=== PATIENT | male | born 1990 | race Caucasian/White ===

== ENCOUNTER → 2021-02-27 11:23 | Outpatient (CLI) | payer OTHER, SELFPAY ==
[2021-02-27] MEDS: COVID-19 VACC #1, MRNA(MOD) 100 MCG/0.5 ML VIAL IM (11:36)
== END ==
PROVIDERS: Visit Provider Internal Medicine
DX: Z23 Encounter for immunization (principal)
CPT/HCPCS: 0011A; 91301

== ENCOUNTER → 2021-03-28 11:14 | Outpatient (CLI) | payer OTHER, SELFPAY ==
[2021-03-28] MEDS: COVID-19 VACC #2, MRNA(MOD) 100 MCG/0.5 ML VIAL IM (11:21)
== END ==
PROVIDERS: Visit Provider Internal Medicine
DX: Z23 Encounter for immunization (principal)
CPT/HCPCS: 0012A; 91301

== ENCOUNTER 2023-05-17 22:36 | Emergency (ER) | payer SELFPAY ==
[2023-05-17] VITALS (9 sets, daily range): BP systolic 166–198; BP diastolic 87–134; PULSE 50–74; RESP 18–36; TEMP 36.3; O2SAT 96–100; BMI 35.9
--- NOTE | 2023-05-17 22:47 | ED_ITS ---
HPI - Back Pain/Injury General Chief Complaint: Back Pain/Injury Stated Complaint: Lower back pain Time Seen by Provider: 05/17/23 22:46 Source: patient History of Present Illness HPI Narrative: 32-year-old male nonsmoker without any chronic medical history presents with a chief complaint of bilateral flank pain that came on in what seems to be a gradual fashion over the evening. He 1st noticed it at about 9:00 p.m. and states that it has been worsening. He is had multiple episodes of nausea and vomiting. He denies any obvious provocation or palliation. He denies any history of the same. He has become dizzy and lightheaded when sitting or standing. He denies any fever or chills. He denies any medication change or dietary change. He is had no abdominal pain, constipation or diarrhea. He denies urinary complaints such as dysuria, frequency, urgency or hematuria he is found at registration desk pale, diaphoretic and near syncopal, taken directly to room for evaluation, treatment Related Data Previous Rx's Medication Instructions Recorded hydrocodone 5 mg-acetaminophen 325 1 tab PO Q4-6H PRN pain #10 tabs 05/18/23 mg tablet ketorolac 10 mg tablet 10 mg PO Q6H PRN pain #14 tabs 05/18/23 ondansetron 4 mg disintegrating 4 mg PO TID-QID PRN nausea and 05/18/23 tablet vomiting #10 tabs tamsulosin 0.4 mg capsule (Flomax) 0.4 mg PO DAILY #30 caps 05/18/23 Allergies Allergy/AdvReac Type Severity Reaction Status Date / Time Fish Containing Products Allergy Unknown Verified 05/17/23 22:38 [FISH CONTAINING PRODUCTS] shellfish derived Allergy Unknown Verified 05/17/23 22:38 [SHELLFISH DERIVED] Review of Systems Review of Systems Narrative: GENERAL: see HPI HEENT: Denies sinus pain, ear pain, sore throat, difficulty swallowing, dizziness. RESPIRATORY: Denies dyspnea, cough, wheezing, hemoptysis, sputum. CARDIOVASCULAR: Denies chest pain, palpitations, orthopnea, edema, GASTROINTESTINAL: see HPI : Denies dysuria, frequency, incontinence, hematuria, urinary retention. MUSCULOSKELETAL: see HPI SKIN: Denies rash, skin lesions, or other NEUROLOGIC: Denies weakness, headache, numbness, change in speech, confusion, seizures, incoordination. PSYCHIATRIC: No concerning psychosocial issues. 12 point review of systems is negative except for those stated above Patient History Social History Smoking Status: Never smoker Smoking Status: Never smoker alcohol intake frequency: holidays/special occasions only Substance Use Type: does not use Exam Narrative Exam Narrative: GENERAL: 32[] year old patient appears stated age. Well-developed patient, in obvious distress, pale, diaphoretic, holding emesis bag HEAD: Atraumatic. Normocephalic. EYES: Pupils equal round and reactive. Extraocular motions intact. No scleral icterus. No injection or drainage. ENT: Nose without bleeding, purulent drainage. Throat without erythema, tonsillar hypertrophy or exudate. Airway patent. NECK: Trachea midline. Non tender CARDIOVASCULAR: Bradycardic but regular rhythm without murmurs, gallops, or rubs. RESPIRATORY: Clear to auscultation. Breath sounds equal bilaterally. No wheezes, rales, or rhonchi. GASTROINTESTINAL: Abdomen soft, non-tender, nondistended. EXTREMITIES: No edema or joint tenderness. BACK: Bilateral CVA tenderness, no midline pain, step-offs or crepitance, no swelling, erythema or warmth. No saddle anesthesia, bilateral lower extremities 5/5 strength, reflexes 2+ NEURO: AOx3. SKIN: No rash or erythema of visible areas Initial Vital Signs Initial Vital Signs: Vital Signs Temperature 97.4 F L 05/17/23 22:38 Pulse Rate 51 L 05/17/23 22:38 Respiratory Rate 18 05/17/23 22:38 Blood Pressure 182/102 H 05/17/23 22:38 Pulse Oximetry 100 05/17/23 22:38 Oxygen Delivery Method Room Air 05/17/23 22:38 Course Orders Ordered: ED Orders 05/17/23 22:45 Complete Blood Count AUTO DIFF Stat Comprehensive Metabolic Panel Stat Lactate (Lactic Acid) Stat Lipase Stat Magnesium Stat 05/17/23 22:47 EKG-12 Lead Stat 05/17/23 23:03 Blood Culture Stat 05/18/23 00:15 Ictotest Urine Stat Urine Microscopic Stat 05/18/23 00:41 CT kidney ureter bladder (KUB) Stat Famotidine (Famotidine 20 Mg/2 Ml Vial) 20 mg IV NOW AGUSTIN Last Admin: 05/17/23 23:31 Dose: 20 mg Documented By: DAQUAN Discontinued Medications Hydrocodone Bitart/Acetaminophen (Hydrocodone/Acet 5/325 Prepack) 1 bottle MISC SEEINSTR ONE Stop: 05/18/23 01:37 Diphenhydramine HCl (Diphenhydramine 50 Mg/Ml Vial) 25 mg IV NOW ONE Stop: 05/17/23 23:17 Last Admin: 05/17/23 23:32 Dose: 25 mg Documented By: GC Hydralazine HCl (Hydralazine 20 Mg/Ml Vial) 20 mg IV NOW ONE Stop: 05/17/23 23:17 Last Admin: 05/17/23 23:31 Dose: 20 mg Documented By: GC Sodium Chloride (Normal Saline 0.9%) 1,000 mls @ 1,000 mls/hr IV BOLUS ONE Stop: 05/17/23 23:46 Last Infusion: 05/18/23 00:06 Dose: 0 mls/hr Documented By: Admin: 05/17/23 23:06 Dose: 1,000 mls/hr Documented By: DAQUAN Ketorolac Tromethamine (Ketorolac 30 Mg/Ml Vial) 15 mg IV NOW ONE Stop: 05/18/23 00:42 Last Admin: 05/18/23 00:50 Dose: 15 mg Documented By: DAQUAN Methylprednisolone (Methylprednisolone 125 Mg/2 Ml Vial) 125 mg IV NOW ONE Stop: 05/17/23 23:17 Last Admin: 05/17/23 23:32 Dose: 125 mg Documented By: DAQUAN Ondansetron HCl (Ondansetron 4 Mg/2 Ml Inj) 4 mg IV NOW ONE Stop: 05/17/23 22:48 Last Admin: 05/17/23 23:05 Dose: 4 mg Documented By: DAQUAN Ondansetron HCl (Ondansetron 4 Mg Odt Prepack) 1 bottle MISC SEEINSTR ONE Stop: 05/18/23 01:37 Pantoprazole Sodium (Pantoprazole 40 Mg Vial) 40 mg IV NOW ONE Stop: 05/17/23 22:48 Last Admin: 05/17/23 23:06 Dose: 40 mg Documented By: DAQUAN Tamsulosin HCl (Tamsulosin 0.4 Mg Capsule) 0.4 mg PO NOW ONE Stop: 05/18/23 01:37 Reevaluation(s) Reevaluation #1: Patient given fluids, antiemetics and is feeling much better, initially he was likely having a vagally mediated response and heart rate was junctional in the 40s, over initial evaluation. He is greatly improved and heart rate is now in the 70s to 90s, he is no longer diaphoretic or pale. Vital Signs Vital signs: Vital Signs - 8 hr 05/17/23 22:38 05/17/23 22:47 05/17/23 22:48 Temperature 97.4 F L Pulse Rate 51 L Respiratory Rate 18 Blood Pressure 182/102 H 175/87 H Pulse Oximetry 100 97 Oxygen Delivery Method Room Air 05/17/23 22:48 05/17/23 22:54 05/17/23 22:54 Temperature Pulse Rate 54 L 50 L Respiratory Rate 34 H Blood Pressure 198/134 H Pulse Oximetry 97 97 Oxygen Delivery Method 05/17/23 22:55 05/17/23 22:55 05/17/23 23:00 Temperature Pulse Rate 55 L Respiratory Rate 27 H Blood Pressure 174/114 H 196/116 H Pulse Oximetry 96 Oxygen Delivery Method 05/17/23 23:00 05/17/23 23:31 05/17/23 23:30 Temperature Pulse Rate 57 L 66 Respiratory Rate 33 H Blood Pressure 173/102 H 173/102 H Pulse Oximetry 96 Oxygen Delivery Method 05/17/23 23:30 05/17/23 23:45 05/17/23 23:45 Temperature Pulse Rate 52 L 74 Respiratory Rate 30 H 36 H Blood Pressure 166/88 H Pulse Oximetry 96 99 Oxygen Delivery Method 05/18/23 00:00 05/18/23 00:00 05/18/23 00:08 Temperature Pulse Rate 75 84 Respiratory Rate 35 H Blood Pressure 166/89 H 166/89 H Pulse Oximetry 98 Oxygen Delivery Method MDM - Back Pain/Injury Lab Data 05/17/23 22:45 05/17/23 22:45 Labs: Lab Results 05/17/23 05/17/23 05/17/23 Range/Units 22:45 22:45 22:45 WBC 9.1 (4.5-11.0) X10^3/uL RBC 5.02 (4.5-5.9) X10^6/uL Hgb 15.2 (13.5-17.5) g/dL Hct 44.1 (41-53) % MCV 87.8 (80-100) fL MCH 30.3 (26-34) PG MCHC 34.5 (30-36) % RDW 13.5 (11.6-14.8) % Plt Count 258 (150-400) X10^3/uL Neut % (Auto) 55.4 (50-75) % Lymph % (Auto) 33.9 (25-40) % [place] % (Auto) 7.2 (3-14) % Eos % (Auto) 2.9 (2-4) % Baso % (Auto) 0.6 (0-2) % Neut # (Auto) 5000 (4114-4320) /uL Lymph # (Auto) 3100 (4289-4270) /uL [place] # (Auto) 700 (0-900) /uL Eos # (Auto) 300 (0-450) /uL Baso # (Auto) 100 (0-100) /uL Sodium 139 (137-145) mmol/L Potassium 3.3 L (3.4-5.1) mmol/L Chloride 100 (98-107) mmol/L Carbon Dioxide 29 (22-32) mmol/L BUN 11 (9-20) mg/dL Creatinine 1.09 (0.66-1.25) mg/dL Estimated GFR > 60 (>60) mL/min BUN/Creatinine Ratio 10.1 (6-22) Glucose 123 H (70-100) mg/dL Lactate 1.3 (0.7-2.1) mmol/L Calcium 9.6 (8.4-10.2) mg/dL Magnesium 1.9 (1.6-2.3) mg/dL Total Bilirubin 0.6 (0.2-1.3) mg/dL AST 27 (17-59) IU/L ALT 31 (<50) IU/L Alkaline Phosphatase 68 (38-126) U/L Total Protein 8.3 H (6.3-8.2) g/dL Albumin 4.7 (3.5-5.0) g/dL Globulin 3.6 (1.7-4.1) g/dL Albumin/Globulin Ratio 1.3 (1.0-2.8) Lipase 147 (23-300) U/L Ur Bilirubin Confirm (Negative) Urine RBC (0-5/HPF) Urine WBC (0-5/HPF) Ur Squamous Epith Cells (0-5/HPF) Calcium Oxalate Crystal Urine Bacteria (None) Ur Culture Indicated? 05/18/23 Range/Units 00:15 WBC (4.5-11.0) X10^3/uL RBC (4.5-5.9) X10^6/uL Hgb (13.5-17.5) g/dL Hct (41-53) % MCV (80-100) fL MCH (26-34) PG MCHC (30-36) % RDW (11.6-14.8) % Plt Count (150-400) X10^3/uL Neut % (Auto) (50-75) % Lymph % (Auto) (25-40) % [place] % (Auto) (3-14) % Eos % (Auto) (2-4) % Baso % (Auto) (0-2) % Neut # (Auto) (0924-0619) /uL Lymph # (Auto) (9667-5114) /uL [place] # (Auto) (0-900) /uL Eos # (Auto) (0-450) /uL Baso # (Auto) (0-100) /uL Sodium (137-145) mmol/L Potassium (3.4-5.1) mmol/L Chloride (98-107) mmol/L Carbon Dioxide (22-32) mmol/L BUN (9-20) mg/dL Creatinine (0.66-1.25) mg/dL Estimated GFR (>60) mL/min BUN/Creatinine Ratio (6-22) Glucose (70-100) mg/dL Lactate (0.7-2.1) mmol/L Calcium (8.4-10.2) mg/dL Magnesium (1.6-2.3) mg/dL Total Bilirubin (0.2-1.3) mg/dL AST (17-59) IU/L ALT (<50) IU/L Alkaline Phosphatase (38-126) U/L Total Protein (6.3-8.2) g/dL Albumin (3.5-5.0) g/dL Globulin (1.7-4.1) g/dL Albumin/Globulin Ratio (1.0-2.8) Lipase (23-300) U/L Ur Bilirubin Confirm Negative (Negative) Urine RBC >100/hpf H (0-5/HPF) Urine WBC 0-1/hpf (0-5/HPF) Ur Squamous Epith Cells None seen (0-5/HPF) Calcium Oxalate Crystal Few H Urine Bacteria None seen (None) Ur Culture Indicated? Cult not indicated Point of Care Testing Glucose POC 110 Urine Dip Bedside Urine Glucose Negative Bedside Urine Bilirubin - Negative Bedside Urine Ketone ++ 40 Urine Specific [place] 1.03 Bedside Urine Occult Blood +++ Bedside Urine pH 5.5 Bedside Urine Protein + 30 Bedside Urine Urobilinogen - Negative Bedside Urine Nitrite - Negative Bedside Urine Leukocytes - Negative Esterase MDM Narrative Medical decision making narrative: [32] year old patient presents with sudden onset flank pain Multiple etiologies for patient's symptoms considered including, but not limited to: [Kidney stone versus pyelonephritis versus back spasm versus other] Prior Charts reviewed in our EMR Primary Historian: patient Labs reviewed and interpreted by myself: Urine notes blood but no signs of an infectious process. Serum labs without leukocytosis or left shift, no alteration in renal function Imaging reviewed: CT KUB demonstrates a 5 mm stone in the right proximal ureter with associated hydro Patient's symptoms improved over duration of stay with above-stated therapies. Pain is well controlled. He is tolerating orals. As stated above, vitals are greatly improved with pain control and his initial presentation appears to have been a vagal response to pain and N/V. He shows no signs of infection or sepsis. Patient is appropriate for discharge. Findings and discharge diagnosis discussed with patient/family followed by verbalization of understanding Return precautions discussed with patient/family whom verbalize understanding of diagnosis and plan Discharge Plan Departure Patient Disposition: Home Clinical Impression: Kidney stone on right side Instructions: DI for Kidney Stones Activity Restrictions/Additional Instructions: *You have been diagnosed with [right-sided kidney stone] *What to do: *Please continue to take your regular medications as directed. [ x] New medication prescriptions sent to your pharmacy: [ [facility]] [ ] New medication written as a paper prescription [ ] No new medications given *Please follow up with your primary care provider in 2-3 days, call for an appointment. Let them know you were seen in the Emergency Department and that we ask that you be seen in follow up. We will electronically transmit a record of today's note if your PCP is in our system *If you do not have a primary care provider please contact the [facility] Resource line at [phone]. They will ask some questions about your medical history and help get you set up with a doctor in the community. * as we discussed I have included contact information for Dr. Archibald at the [facility] here at [facility]. Please call the office on Friday, let them know that you were seen and evaluated in the emergency department and we would like you seen in follow-up. I will electronically transmitted a copy of today's note *Return to Emergency Department if you should have any new, worsening or concerning symptoms, such as [fever greater than 101 F, shaking chills, worsening pain, persistent vomiting or other bothersome symptoms] Prescriptions: New hydrocodone-acetaminophen 5-325 mg tablet 1 tab PO Q4-6H PRN (Reason: pain) Qty: 10 0RF ketorolac 10 mg tablet 10 mg PO Q6H PRN (Reason: pain) Qty: 14 0RF tamsulosin [Flomax] 0.4 mg capsule 0.4 mg PO DAILY Qty: 30 0RF ondansetron 4 mg tablet,disintegrating 4 mg PO TID-QID PRN (Reason: nausea and vomiting) Qty: 10 0RF Referrals: Venancio Archibald MD [Physician] - Stand Alone Forms: Patient Portal/API
[2023-05-17] MEDS: ONDANSETRON 4 MG/2 ML INJ IV (23:05)
[2023-05-17] MEDS: SODIUM CHLORIDE 0.9% 1,000 ML 1000 ML IV (23:06)
[2023-05-17] MEDS: PANTOPRAZOLE 40 MG VIAL IV (23:06)
[2023-05-17 23:11] LABS: Add Manual Diff / Slide Review NO; Basophils Absolute Auto 100 /uL (0-100); Basophils Percent Auto 0.6 % (0-2); Eosinophils Absolute Auto 300 /uL (0-450); Eosinophils Percent Auto 2.9 % (2-4); Hematocrit 44.1 % (41-53); Hemoglobin 15.2 g/dL (13.5-17.5); Lymphocytes Absolute Auto 3100 /uL (1100-4500); Lymphocytes Percent Auto 33.9 % (25-40); Mean Corpuscular HGB Conc 34.5 % (30-36); Mean Corpuscular Hemoglobin 30.3 PG (26-34); Mean Corpuscular Volume 87.8 fL (80-100); Monocytes Absolute Auto 700 /uL (0-900); Monocytes Percent Auto 7.2 % (3-14); Neutrophils Absolute Auto 5000 /uL (1500-7000); Neutrophils Percent Auto 55.4 % (50-75); Platelet Count 258 X10^3/uL (150-400); Red Blood Cell Count 5.02 X10^6/uL (4.5-5.9); Red Cell Distribution Width 13.5 % (11.6-14.8); White Blood Cell Count 9.1 X10^3/uL (4.5-11.0)
[2023-05-17 23:17] LABS: Lactate (Lactic Acid) 1.3 mmol/L (0.7-2.1)
[2023-05-17 23:19] LABS: Alanine Aminotransferase 31 IU/L (<50); Albumin 4.7 g/dL (3.5-5.0); Albumin Globulin Ratio 1.3 (1.0-2.8); Alkaline Phosphatase 68 U/L (38-126); Aspartate Aminotransferase 27 IU/L (17-59); BUN Creatinine Ratio 10.1 (6-22); Bilirubin Total 0.6 mg/dL (0.2-1.3); Blood Urea Nitrogen 11 mg/dL (9-20); Calcium 9.6 mg/dL (8.4-10.2); Carbon Dioxide 29 mmol/L (22-32); Chloride 100 mmol/L (98-107); Estimated Glomerular Filt Rate > 60 mL/min (>60); Globulin 3.6 g/dL (1.7-4.1); Glucose 123 mg/dL (70-100); HEMOLYSIS 15 (0-50); Lipase 147 U/L (23-300); Magnesium 1.9 mg/dL (1.6-2.3); Potassium 3.3 mmol/L (3.4-5.1); Sodium 139 mmol/L (137-145); Total Protein 8.3 g/dL (6.3-8.2)
[2023-05-17] MEDS: FAMOTIDINE 20 MG/2 ML VIAL IV (23:31)
[2023-05-17] MEDS: HYDRALAZINE 20 MG/ML VIAL IV (23:31)
[2023-05-17] MEDS: diphenhydrAMINE 50 MG/ML VIAL 25 MG IV (23:32)
[2023-05-17] MEDS: methylPREDNISolone 125 MG/2 ML VIAL IV (23:32)
[2023-05-18] VITALS: BP 166/89; PULSE 75; RESP 35; O2SAT 98
[2023-05-18 00:08] VITALS: BP 166/89; PULSE 84
[2023-05-18 00:36] LABS: Bacteria Urine None Seen; Calcium Oxalate Crystals Urine Few; Culture Indicated Urine Cult Not Indicated; Ictotest Urine Negative (Negative); RBC Urine >100/HPF (0-5/HPF); Squamous Epithelial Cell Urine None Seen (0-5/HPF); WBC Urine 0-1/HPF (0-5/HPF)
--- NOTE | 2023-05-18 00:41 | DI.CT.S_ITS ---
PROCEDURE: CT KIDNEY URETER BLADDER (KUB) INDICATIONS: flank pain, hematuria TECHNIQUE: Axial sections were acquired from the lung bases to the pubic symphysis. Coronal and sagittal reformats were performed. For radiation dose reduction, the following was used: automated exposure control, adjustment of mA and/or kV according to patient size. COMPARISON: None. FINDINGS: Image quality: Excellent. Lung bases: Unremarkable. Heart: No significant findings. URINARY: Right Kidney: There is a punctate nonobstructive calcification within the central renal collecting system on the right, but there is also a mid ureteral 5 mm calculus with radiodensity of 1062 Hounsfield units. Mild perinephric edema is present on the right, associated with this obstructive stone. Right Ureter: Mild hydroureter at the point of the obstructive stone and above. Left Kidney: No stones or hydronephrosis. Left Ureter: No hydroureter. Bladder: Normal wall thickness. No stones. ABDOMEN: Liver: Unremarkable. Gallbladder: Unremarkable. Biliary ducts: Unremarkable. Pancreas: Unremarkable. Spleen: Unremarkable. Adrenal Glands: Unremarkable. Stomach and Bowel: Stomach, small bowel loops, and colon are unremarkable. Peritoneum: No abnormal intraperitoneal fluid. No free air. Ventral Wall: No hernia. Abdominal Nodes: No enlarged retroperitoneal or mesenteric lymph nodes. Vessels: Aorta and inferior vena cava are normal in size. PELVIS: Pelvic Organs: Unremarkable. Pelvic Nodes: Unremarkable. Miscellaneous: No inguinal hernias are seen. Bones: Unremarkable. IMPRESSION: Right-sided mild hydronephrosis and hydroureter associated with an impacted 5 mm [id number] ureteral stone. A 2nd calculus is punctate, nonobstructive, within the central renal collecting system of the right kidney. Dictated by: Jean Pierre Gatica M.D. on 05/18/2023 at 1:25 Approved by: Jean Pierre Gatica M.D. on 05/18/2023 at 1:29
[2023-05-18] MEDS: KETOROLAC 30 MG/ML VIAL 15 MG IV (00:50)
[2023-05-18] MEDS: TAMSULOSIN 0.4 MG CAPSULE PO (01:52)
[2023-05-18] MEDS: HYDROCODONE/ACET 5/325 PREPACK 1 BOTTLE MISC (01:52)
[2023-05-18] MEDS: ONDANSETRON 4 MG ODT PREPACK 1 BOTTLE MISC (01:52)
[2023-05-18 02:03] VITALS: BP 155/80; RESP 18; O2SAT 99
== END 2023-05-18 02:00 | disposition home or self-care (01) ==
PROVIDERS: Emergency Provider Emergency Medicine
DX: N20.0 Calculus of kidney (principal); R55 Syncope and collapse
CPT/HCPCS: 36415; 74176; 80053; 81003; 81015; 82962; 83605; 83690; 83735; 85025; 87040; 93005; 93010; 96361; 96374; 96375; 99284; C9113; J0360; J1200; J1885; J2405; J2930